=== PATIENT | female | born 1990 | race Caucasian/White ===

== ENCOUNTER 2019-02-25 08:22 | Inpatient (IN) | payer OTHER ==
[~2019-02-25 08:22] MED LIST: IBUPROFEN600 MG PO; MONO-LINYAH1 EACH PO; PRENAPLUS TABL1 EACH PO; PROMETHAZINE HC25 M1 PO; ZANTAC150 MG PO; ZOFRAN4 MG PO
--- NOTE | 2019-02-25 16:35 | PR ---
[facility] [address] [facility] [place] [address] Signed Progress Notes IP Datetime Report Generated by CPN: 02/25/2019 16:35 PROGRESS NOTES: [id number] Impression: Slow Progression of Labor Procedures: Intrauterine Pressure Catheter; Scalp Electrode Plan: Continue present management Informed Consent Obtain: Vaginal Delivery; Risks, Benefits and Alternatives Discussed VITAL SIGNS: [id number] Vital Signs: Reviewed; Within Normal Limits EXAM: [id number] Dilatation: 4.0 Effacement: 80 Station: -2 Uterine Contractions: q 2 to 3 min MEMBRANES: [id number] Membrane Status: Ruptured Amniotic Fluid Color: Clear Comments: Comfortable with epidural. No progress despite apparently adequate contraction pattern. Will place IUPC and FSE and increase pit further if needed. Will continue position changes as well. Fetus A: [id number] FHR Baseline: 130 Variability: Moderate 6-25bpm Accelerations: 15X15 Decelerations: Variable FHR Category: Category II Presentation: Vertex Comments on Fetus A: moderate variability--will continue observation Fetus B: [id number] Signing Physician: Abby Dominguez MD Copies: ~ *Electronically Signed* 02/25/19 1635 ABBY DOMINGUEZ MD PATIENT NAME: LORRIE KNOTT PROGRESS NOTE DATE OF : 88 PHYSICIAN: ABBY DOMINGUEZ MD RPT #: [id number] REPORT IS CONFIDENTIAL AND NOT TO BE RELEASED WITHOUT AUTHORIZATION
--- NOTE | 2019-02-25 16:49 | PR ---
[facility] [address] [place], [place] [address] Signed Progress Notes IP Datetime Report Generated by SAYRA: 02/25/2019 16:49 PROGRESS NOTES: [id number] Impression: Non-reassuring heart rate Procedures: Intrauterine Pressure Catheter; Scalp Electrode Other Procedures: stop pit, position changes, subQ terb Plan: Continue present management Other Plans: continue close observation Informed Consent Obtain: Vaginal Delivery; Risks, Benefits and Alternatives Discussed VITAL SIGNS: [id number] Vital Signs: Reviewed; Within Normal Limits EXAM: [id number] Dilatation: 4.0 Effacement: 80 Station: -2 Uterine Contractions: q 2 to 3 min MEMBRANES: [id number] Membrane Status: Ruptured Amniotic Fluid Color: Clear Comments: Multiple decels present which were variable and now appear to be late. Pit stopped but still brandon frequently. Will give does of subq terb to help decrease contractions further and allow resuscitation. Fetus A: [id number] FHR Baseline: 130 Variability: Minimal - Undetectable to <5bpm Accelerations: None Decelerations: Late; Variable FHR Category: Category II Presentation: Vertex Comments on Fetus A: close observation needed given present status Fetus B: [id number] Signing Physician: Abby Dominguez MD Copies: ~ *Electronically Signed* 02/25/19 6842 ABBY DOMINGUEZ MD PATIENT NAME: LORRIE KNOTT PROGRESS NOTE DATE OF : 88 PHYSICIAN: ABBY DOMINGUEZ MD RPT #: [id number] REPORT IS CONFIDENTIAL AND NOT TO BE RELEASED WITHOUT AUTHORIZATION
--- NOTE | 2019-02-25 19:00 | PR ---
[facility] [address] [facility] [place], [place] [address] Signed Progress Notes IP Datetime Report Generated by CPN: 02/25/2019 19:00 PROGRESS NOTES: [id number] Impression: Slow Progression of Labor Procedures: Sterile Vag Exam Other Procedures: stop pit, position changes, subQ terb Plan: Continue present management Other Plans: continue close observation Informed Consent Obtain: Vaginal Delivery; Risks, Benefits and Alternatives Discussed VITAL SIGNS: [id number] Vital Signs: Reviewed; Within Normal Limits EXAM: [id number] Dilatation: 5.0 Effacement: 80 Station: -1 Uterine Contractions: q 4 to 5 min MEMBRANES: [id number] Membrane Status: Ruptured Amniotic Fluid Color: Clear Comments: Progressing. status reassuring at this time. Fetus A: [id number] FHR Baseline: 130 Variability: Moderate 6-25bpm Accelerations: 15X15 Decelerations: Early; Variable FHR Category: Category II Presentation: Vertex Comments on Fetus A: good variability but will continue close observation Fetus B: [id number] Signing Physician: Abby Dominguez MD Copies: ~ *Electronically Signed* 02/25/191899 ABBY DOMINGUEZ MD PATIENT NAME: LORRIE KNOTT PROGRESS NOTE DATE OF : 88 PHYSICIAN: ABBY DOMINGUEZ MD RPT #: [id number] REPORT IS CONFIDENTIAL AND NOT TO BE RELEASED WITHOUT AUTHORIZATION
--- NOTE | 2019-02-26 08:19 | PR ---
[facility] [address] [facility] [place] [address] Signed PP Progress Notes Datetime Report Generated by CPN: 02/26/2019 08:19 SUBJECTIVE: [id number] Pain: Within normal limits Vital Signs: [id number] Vital Signs: Reviewed; Within Normal Limits EXAM: [id number] Cardiovascular: Not Done Respiratory: Not Done Abdomen/Uterus: Abnormal Lochia: Normal Vulva/Perineum: Not Done Breasts: Not Done CVA Tenderness: Not Done Extremities: Normal Incision: Not Applicable Progress: Normal Exam Comments: Fundus firm, NT @ U-1. H/H 9.7/29, WBC 17.7, plat 254k IMPRESSION/PLAN/PROCEDURES: [id number] Impression: Normal progression Plan: Continue present management Procedures: None Progress Notes: Doing well. Continue present care. Signing Physician: Abby Dominguez MD Copies: ~ *Electronically Signed* 02/26/19818 ABBY DOMINGUEZ MD PATIENT NAME: LORRIE KNOTT PROGRESS NOTE DATE OF : 88 PHYSICIAN: ABBY DOMINGUEZ MD RPT #: [id number] REPORT IS CONFIDENTIAL AND NOT TO BE RELEASED WITHOUT AUTHORIZATION
--- NOTE | 2019-02-27 08:40 | PR ---
[facility] [address] [facility] [place], [place] [address] Signed PP Progress Notes Datetime Report Generated by CPN: 02/27/2019 08:40 SUBJECTIVE: [id number] Pain: Within normal limits Vital Signs: [id number] Vital Signs: Reviewed; Within Normal Limits EXAM: [id number] Cardiovascular: Not Done Respiratory: Not Done Abdomen/Uterus: Abnormal Lochia: Normal Vulva/Perineum: Not Done Breasts: Not Done CVA Tenderness: Not Done Extremities: Normal Incision: Not Applicable Progress: Normal Exam Comments: Fundus firm, NT @ U-1. IMPRESSION/PLAN/PROCEDURES: [id number] Impression: Normal progression Plan: Discharge Procedures: None Progress Notes: Doing well. She is ready for D/C. Signing Physician: Abby Dominguez MD Copies: ~ *Electronically Signed* 02/27/19 0840 ABBY DOMINGUEZ MD PATIENT NAME: LORRIE KNOTT PROGRESS NOTE DATE OF : 88 PHYSICIAN: ABBY DOMINGUEZ MD RPT #: [id number] REPORT IS CONFIDENTIAL AND NOT TO BE RELEASED WITHOUT AUTHORIZATION
== END 2019-02-27 10:20 | disposition home or self-care (01) | DRG 807 ==
LOC: FBCO 08:22 → FBC 08:30
PROVIDERS: ADMIT Obstetrics & Gynecology
PROC: 10E0XZZ Delivery of Products of Conception, External Approach (ICD-10-PCS; principal; 2019-02-25)
PROC: 10H07YZ Insertion of Other Device into Products of Conception, Via Natural or Artificial Opening (ICD-10-PCS; 2019-02-25)
PROC: 00HU33Z Insertion of Infusion Device into Spinal Canal, Percutaneous Approach (ICD-10-PCS; 2019-02-25)
PROC: 3E0R3BZ Introduction of Anesthetic Agent into Spinal Canal, Percutaneous Approach (ICD-10-PCS; 2019-02-25)
DX: O42.92 Full-term premature rupture of membranes, unspecified as to length of time between rupture and onset of labor (principal); Z37.0 Single live birth; Z3A.38 38 weeks gestation of pregnancy; O76 Abnormality in fetal heart rate and rhythm complicating labor and delivery; O99.214 Obesity complicating childbirth; E66.9 Obesity, unspecified; O69.1XX0 Labor and delivery complicated by cord around neck, with compression, not applicable or unspecified; O99.334 Smoking (tobacco) complicating childbirth; F17.210 Nicotine dependence, cigarettes, uncomplicated
CPT/HCPCS: 01960; 36415; 82803; 85027; 99406; J2590; J3105; J7120

== ENCOUNTER 2020-08-24 19:03 | Inpatient (IN) | payer OTHER ==
[~2020-08-24] VITALS: Ht 162.6 cm; Wt 111.1 kg
[2020-08-24] MEDS ORDERED: PROBIOTIC1 EAC1 PO (19:49)
--- NOTE | 2020-08-24 23:56 | PR ---
[facility] [address] [place], [place] [address] Signed Progress Notes IP Datetime Report Generated by CPN: 08/24/2020 23:56 PROGRESS NOTES: [id number] Impression: Normal Progression of Labor; Reassuring Heart Rate Procedures: Artificial ROM Plan: Continue Present Management Informed Consent Obtain: Vaginal Delivery VITAL SIGNS: [id number] Vital Signs: Reviewed; Within Normal Limits EXAM: [id number] Dilatation: 7.0 Effacement: 100 Station: 0 Contractions: Rare MEMBRANES: [id number] Comments: Pt seen and examined. Doing well. Comfortable w/ contractions but feeling some increased pressure. Large bulgy bag noted, and AROM performed without difficulty after verbal consent for moderate amount clear fluid. Discussed anticipated course of remainder of labor/delivery. All questions answered. Anticipate FETUS A: [id number] FHR Baseline: 125 Variability: Moderate 6-25bpm Accelerations: 15X15 Decelerations: None FHR Category: Category I Comments on Fetus A: No evidence of metabolic acidosis FETUS B: [id number] Signing Physician: Ck Lobo DO Copies: ~ *Electronically Signed* 08/24/20 6172 CK LOBO DO PATIENT NAME: LORRIE KNOTT PROGRESS NOTE DATE OF : 88 PHYSICIAN: CK LOBO DO RPT #: [id number] REPORT IS CONFIDENTIAL AND NOT TO BE RELEASED WITHOUT AUTHORIZATION
--- NOTE | 2020-08-26 08:00 | PR ---
[facility] [address] [facility] [place], [place] [address] Signed PP Progress Notes Datetime Report Generated by CPN: 08/26/2020 08:00 SUBJECTIVE: [id number] Pain: Within Normal Limits Nausea/Vomiting: Denies Flatus: Yes Bowel Movement: No Vital Signs: [id number] Vital Signs: Reviewed; Within Normal Limits Cardiovascular: Normal Respiratory: Normal Abdomen/Uterus: Normal Lochia: Normal Vulva/Perineum: Not Done Breasts: Not Done CVA Tenderness: Normal Extremities: Normal Incision: Not Applicable Progress: Normal Exam Comments: Fundus firm U-2 nontender IMPRESSION/PLAN/PROCEDURES: [id number] Impression: Normal Progression Plan: Discharge Progress Notes: Pt seen and examined. Doing well. Ambulating, voiding, and tolerating full diet. Pain and lochia minimal. well. Desires d/c home today. Reviewed d/c instructions in detail. Planning vasectomy for pp contraception. F/U 2 wks Signing Physician: Ck Lobo DO Copies: ~ *Electronically Signed* 08/26/20 0800 CK LOBO DO PATIENT NAME: NIKOSLORRIE PROGRESS NOTE DATE OF : 88 PHYSICIAN: CK LOBO DO RPT #: [id number] REPORT IS CONFIDENTIAL AND NOT TO BE RELEASED WITHOUT AUTHORIZATION
== END 2020-08-26 09:40 | disposition home or self-care (01) | DRG 807 ==
LOC: FBCO 19:03 → EDSTATUS 19:11 → FBC 19:12
PROVIDERS: ADMIT Obstetrics & Gynecology; ATTEND Obstetrics & Gynecology
PROC: 10907ZC Drainage of Amniotic Fluid, Therapeutic from Products of Conception, Via Natural or Artificial Opening (ICD-10-PCS; 2020-08-24)
PROC: 00HU33Z Insertion of Infusion Device into Spinal Canal, Percutaneous Approach (ICD-10-PCS; 2020-08-24)
PROC: 3E0R3BZ Introduction of Anesthetic Agent into Spinal Canal, Percutaneous Approach (ICD-10-PCS; 2020-08-24)
PROC: 10E0XZZ Delivery of Products of Conception, External Approach (ICD-10-PCS; principal; 2020-08-25)
DX: O99.824 Streptococcus B carrier state complicating childbirth (principal); Z37.0 Single live birth; Z3A.39 39 weeks gestation of pregnancy; O99.334 Smoking (tobacco) complicating childbirth; F17.210 Nicotine dependence, cigarettes, uncomplicated; O99.214 Obesity complicating childbirth; E66.9 Obesity, unspecified
CPT/HCPCS: 01960; 36415; 59025; 85027; 99213; A9270; J2540; J2590; J7121

== ENCOUNTER 2022-08-05 11:00 | Inpatient (IN) | payer OTHER ==
[~2022-08-05] VITALS: Ht 162.6 cm; Wt 114.3 kg
[~2022-08-05 11:00] MED LIST changes: +PROBIOTIC1 EAC1 PO
--- NOTE | 2022-08-05 19:02 | PR ---
[facility] [address] [facility] [place], [place] [address] Signed Progress Notes IP Datetime Report Generated by CPN: 08/05/2022 19:02 PROGRESS NOTES: [id number] Impression: Normal Progression of Labor; Reassuring Heart Rate Procedures: Intrauterine Pressure Catheter Plan: Continue Present Management Informed Consent Obtain: Vaginal Delivery VITAL SIGNS: [id number] Vital Signs: Reviewed; Within Normal Limits EXAM: [id number] Dilatation: 6.0 Effacement: 70 Station: -2 Contractions: Rare MEMBRANES: [id number] Comments: Pt seen and examined. Doing well. Comfortable w/ epidural. Slow cervical change. IUPC placed w/out difficulty. Will plan to start low dose pitocin per protocol. Will monitor FHT FETUS A: [id number] FHR Baseline: 140 Variability: Moderate 6-25bpm Accelerations: 15X15 Decelerations: None Presentation: Vertex Comments on Fetus A: No evidence of metabolic acidosis FETUS B: [id number] Signing Physician: Ck Lobo DO Copies: ~ *Electronically Signed* 08/05/221901 CK LOBO DO PATIENT NAME: NIKOSLORRIE PROGRESS NOTE DATE OF : 88 PHYSICIAN: CK LOBO DO RPT #: [id number] REPORT IS CONFIDENTIAL AND NOT TO BE RELEASED WITHOUT AUTHORIZATION
--- NOTE | 2022-08-06 11:25 | PR ---
[facility] [address] [place], [place] [address] Signed PP Progress Notes Datetime Report Generated by CPN: 08/06/2022 11:25 SUBJECTIVE: [id number] Pain: Within Normal Limits Nausea/Vomiting: Denies Flatus: Yes Vital Signs: [id number] Vital Signs: Reviewed; Within Normal Limits EXAM: Ongoing Cardiovascular: Normal Respiratory: Normal Abdomen/Uterus: Normal Lochia: Normal Vulva/Perineum: Not Done Breasts: Not Done CVA Tenderness: Not Done Extremities: Normal Incision: Not Applicable Progress: Normal Exam Comments: Fundus firm U-2 nontender IMPRESSION/PLAN/PROCEDURES: [id number] Impression: Normal Progression Plan: Discharge Progress Notes: Pt seen and examined. Doing well. Ambulating, voiding, and tolerating full diet. Pain and lochia minimal. well. No concerns. Desires d/c home. Reviewed d/c instructions in detail, and planning vasectomy for pp contraception Signing Physician: Ck Lobo DO Copies: ~ *Electronically Signed* 08/06/22 1125 CK LOBO DO PATIENT NAME: NIKOSLORRIE PROGRESS NOTE DATE OF : 88 PHYSICIAN: CK LOBO DO RPT #: [id number] REPORT IS CONFIDENTIAL AND NOT TO BE RELEASED WITHOUT AUTHORIZATION
== END 2022-08-06 21:40 | disposition home or self-care (01) | DRG 768 ==
LOC: FBC 11:00
PROVIDERS: ADMIT Obstetrics & Gynecology; ATTEND Obstetrics & Gynecology
PROC: 10E0XZZ Delivery of Products of Conception, External Approach (ICD-10-PCS; principal; 2022-08-05)
PROC: 10H07YZ Insertion of Other Device into Products of Conception, Via Natural or Artificial Opening (ICD-10-PCS; 2022-08-05)
PROC: 00HU33Z Insertion of Infusion Device into Spinal Canal, Percutaneous Approach (ICD-10-PCS; 2022-08-05)
PROC: 3E0R3BZ Introduction of Anesthetic Agent into Spinal Canal, Percutaneous Approach (ICD-10-PCS; 2022-08-05)
PROC: 3E033VJ Introduction of Other Hormone into Peripheral Vein, Percutaneous Approach (ICD-10-PCS; 2022-08-05)
PROC: 0UQC7ZZ Repair Cervix, Via Natural or Artificial Opening (ICD-10-PCS; 2022-08-05)
PROC: 10907ZC Drainage of Amniotic Fluid, Therapeutic from Products of Conception, Via Natural or Artificial Opening (ICD-10-PCS; 2022-08-05)
DX: O99.214 Obesity complicating childbirth (principal); Z37.0 Single live birth; Z3A.39 39 weeks gestation of pregnancy; Z67.40 Type O blood, Rh positive; O71.3 Obstetric laceration of cervix; O99.334 Smoking (tobacco) complicating childbirth; F17.210 Nicotine dependence, cigarettes, uncomplicated; O10.02 Pre-existing essential hypertension complicating childbirth
CPT/HCPCS: 36415; 85027; 86850; 86900; 86901; A9270; J2590; J7121